=== PATIENT | male | born 1945 | race Caucasian/White ===

== ENCOUNTER 2018-11-22 07:57 | Day surgery (SDC) | payer MEDICARE, SELFPAY ==
[2018-11-10 11:39] VITALS: BMI 31.8
[2018-11-22] VITALS (7 sets, daily range): BP systolic 119–162; BP diastolic 60–79; PULSE 60–74; RESP 13–16; TEMP 36.2–36.7; O2SAT 93–99; BMI 31.8
[2018-11-22] MEDS: LACTATED RINGERS 1,000 ML 100 ML IV (09:08)
--- NOTE | 2018-11-22 09:18 | PM.HP.1 ---
History of Present Illness Date Patient Seen: 11/22/18 Time Patient Seen: 09:18 Chief complaint: [id number] Narrative: Patient seen and examined Health unchanged since recent clinic note Plan for umbilical hernia today with mesh Patient History Medical History (Updated 11/16/18 @ 07:35 by Leonora Montanez RN) Depression (Acute) Diverticulitis (Acute) Graves' disease (Acute) HLD (hyperlipidemia) (Acute) Hx of radioactive iodine thyroid ablation (Acute) Malaise and fatigue (Acute) OSCAR (obstructive sleep apnea) (Acute) PVC (premature ventricular contraction) (Acute) Paroxysmal A-fib (Acute) TIA (transient ischemic attack) (Acute) Gout (Acute) Hypertension (Acute) Hypothyroid (Acute) Pacemaker (Acute 04/02/13) Surgical History (Updated 11/14/18 @ 15:13 by Leonora Montanez RN) History of photorefractive keratectomy (PRK) (Acute) Hx of left cataract extraction (Acute) History of carpal tunnel release (Acute) Social History household members: none Smoking Status: Never smoker alcohol intake: current Family & Social History Social History: household members none Tobacco & Substance use: Smoking Status Never smoker alcohol intake current Substance Use Type does not use Meds Home Medications Medication Instructions Recorded Confirmed Type allopurinol 100 mg tablet 2 tab PO DAILY 11/07/18 11/22/18 History fluoxetine 10 mg capsule 20 mg PO DAILY 11/07/18 11/22/18 History levothyroxine 112 mcg capsule 112 mcg PO DAILY 11/07/18 11/22/18 History lisinopril 20 mg tablet 20 mg PO DAILY 11/07/18 11/22/18 History aspirin 325 mg PO DAILY 11/15/18 11/22/18 History pravastatin 10 mg PO DAILY 11/15/18 11/15/18 History Allergies Allergy/AdvReac Type Severity Reaction Status Date / Time No Known Drug Allergies Allergy Verified 11/22/18 08:38 Exam Vital Signs (past 8 hours): - 11/22/18 08:51 Temperature 98.1 F Pulse Rate 60 Respiratory Rate 16 Blood Pressure 162/79 H Pulse Oximetry 98 Oxygen Delivery Method Room Air
[2018-11-22] MEDS: CEFAZOLIN 2 GM/100 ML FROZ.PIGGY IV (09:20)
--- NOTE | 2018-11-22 09:55 | SUR.OPER ---
Supine on padded OR bed, head on pillow, arms secured on padded arm boards at <90 degrees abduction, legs uncrossed, safety belt at thigh, tape over blanket over lower legs.
[2018-11-22] MEDS: BUPIVACAINE 0.25% W/ EPI 30 ML VIAL INJ (10:02)
[2018-11-22] MEDS: VANCOMYCIN 1,000 MG VIAL 1000 MG TOP (10:03)
[2018-11-22] MEDS: ACETAMINOPHEN IV 1,000 MG/100 ML VIAL 400 MG IV (10:11)
--- NOTE | 2018-11-22 10:52 | PM.OP.1 ---
Operative Date/Time/Diagnoses Date of procedure: 11/22/18 Time of procedure: 10:52 Pre-op diagnosis: Umbilical hernia repair Procedure & Clinicians Procedure: Open umbilical hernia repair with mesh -2 x 2 cm fascial defect Same procedure as scheduled: Yes Indications: 73-year-old man with symptomatic umbilical hernia Surgeon: Rachid Coley Click Yes if Unassisted: Yes Anesthesia Type: General Operative Notes Findings: Umbilical hernia with preperitoneal fat herniated through 2 x 2 cm fascial defect Repaired with preperitoneal placement of a 6 by 6 cm mesh sitka Closure Type: primary Specimen(s): none sent Prosthetic devices, grafts, tissues, transplants, or devices: Polypropylene 6 x 6 cm mesh sitka Estimated Blood Loss (mL): 2 Procedure in detail: Patient was brought to the operating room he was intubated without incident with the LMA, he was prepped and draped in usual sterile fashion a time-out was completed. A curvilinear incision was carried through the superior umbilical crown down through the subcutaneous tissue. Using a curved clamp the umbilical stalk was circumferentially bluntly dissected around. Umbilical stalk was then detached from the underlying tissue. At this point the herniated preperitoneal fat was obvious. This was reduced into the fascial defect. An edge of the fascial defect was grasped with an Allis clamp and elevated circumferentially I entered the preperitoneal plane dissecting out a low sizable pocket 3 cm in all directions -this pocket was developed just deep to the posterior rectus fascia. A small amount of attenuated fascia adjacent to the hernia defect was trimmed back to healthy robust fascia. At this point a portion of the lap pad was inserted into the pocket that had been placed was left for several moments and removed there is essentially no blood on it confirming hemostasis within the pocket. Two 0 PDS sutures were then placed at the lateral edges of the hernia defect. A piece of coated composite polypropylene regular weight mesh was obtained -it was dunked into vancomycin solution and then placed into the preperitoneal pocket previously made. I then circumferentially check to make sure all edges were unrolled and the mesh was lying flat. The central mesh tails were trimmed. At this point the fascial defect was closed using interrupted 0 PDS sutures in a simple interrupted fashion. The mid line suture was placed 1st in a portion of the suture caught the midpoint of the mesh to prevent mesh migration. All sutures were placed and snapped. They then were all tied sequentially and cut. There is good primary fascial closure. The subcutaneous tissue was then irrigated. Local anesthetic was infiltrated into the fascia and subcutaneous tissue. The umbilical stalk was reapproximated over the hernia repair using a Vicryl stitch. Skin was then closed using 2 layer closure of deep dermal 2 0 Vicryl and running monofilament absorbable subcuticular suture. Skin glue was applied the patient was extubated and brought to PACU without incident Complications: none Condition: stable Disposition: PACU Plan for aftercare: Home, follow-up in clinic
--- NOTE | 2018-11-22 11:00 | P.OP_ITS ---
Operative Date/Time/Diagnoses Date of procedure: 11/22/18 Time of procedure: 10:52 Pre-op diagnosis: Umbilical hernia repair Procedure & Clinicians Procedure: Open umbilical hernia repair with mesh -2 x 2 cm fascial defect Same procedure as scheduled: Yes Indications: 73-year-old man with symptomatic umbilical hernia Surgeon: Rachid Coley Click Yes if Unassisted: Yes Anesthesia Type: General Operative Notes Findings: Umbilical hernia with preperitoneal fat herniated through 2 x 2 cm fascial defect Repaired with preperitoneal placement of a 6 by 6 cm mesh havasupai Closure Type: primary Specimen(s): none sent Prosthetic devices, grafts, tissues, transplants, or devices: Polypropylene 6 x 6 cm mesh havasupai Estimated Blood Loss (mL): 2 Procedure in detail: Patient was brought to the operating room he was intubated without incident with the LMA, he was prepped and draped in usual sterile fashion a time-out was completed. A curvilinear incision was carried through the superior umbilical crown down through the subcutaneous tissue. Using a cu rved clamp the umbilical stalk was circumferentially bluntly dissected around. Umbilical stalk was then detached from the underlying tissue. At this point the herniated preperitoneal fat was obvious. This was reduced into the fascial defect. An edge of the fascial defect was grasped with an Allis clamp and elevated circumferentially I entered the preperitoneal plane dissecting out a low sizable pocket 3 cm in all directions -this pocket was developed just deep to the posterior rectus fascia. A small amount of attenuated fascia adjacent to the hernia defect was trimmed back to healthy robust fascia. At this point a portion of the lap pad was inserted into the pocket that had been placed was left for several moments and removed there is essentially no blood on it confirming hemostasis within the pocket. Two 0 PDS sutures were then placed at the lateral edges of the hernia defect. A piece of coated composite polypropylene regular weight mesh was obtained -it was dunked into vancomycin solution and then placed into the preperitoneal pocket previously made. I then circumferentially check to make sure all edges were unrolled and the mesh was lying flat. The central mesh tails were trimmed. At this point the fascial defect was closed using interrupted 0 PDS sutures in a simple interrupted fashion. The mid line suture was placed 1st in a portion of the suture caught the midpoint of the mesh to prevent mesh migration. All sutures were placed and snapped. They then were all tied sequentially and cut. There is good primary fascial closure. The subcutaneous tissue was then irrigated. Local anesthetic was infiltrated into the fascia and subcutaneous tissue. The umbilical stalk was reapproximated over the hernia repair using a Vicryl stitch. Skin was then closed using 2 layer closure of deep dermal 2 0 Vicryl and running monofilament absorbable subcuticular suture. Skin glue was applied the patient was extubated and brought to PACU without incident Complications: none Condition: stable Disposition: PACU Plan for aftercare: Home, follow-up in clinic
[2018-11-22] MEDS: OXYCODONE IR 5 MG TABLET PO (11:22)
--- NOTE | 2018-11-22 16:11 | SUR.PHASEII ---
Friend called, pt left when ready and left in stable condition
== END 2018-11-22 12:00 | disposition home or self-care (01) ==
PROVIDERS: Visit Provider Surgery
PROC: (CPT 49585; principal; 2018-11-22 09:45)
DX: K42.9 Umbilical hernia without obstruction or gangrene (principal); I10 Essential (primary) hypertension; E03.9 Hypothyroidism, unspecified; Z95.0 Presence of cardiac pacemaker
CPT/HCPCS: 49585; C1781; J0131; J0690; J1100; J1885; J2250; J2405; J2704; J3010